=== PATIENT | male | born 1985 ===

== ENCOUNTER 2018-04-28 08:19 | Inpatient (IN) | payer OTHER ==
[2018-04-28] MEDS ORDERED: MIRALAX17 GM PO (17:01)
[2018-04-28] MEDS ORDERED: PERCOCET 5-3251 EACH PO (17:01)
[2018-04-30] MEDS ORDERED: AMOX1TAB5 PO (09:05)
== END 2018-04-30 10:25 | disposition home or self-care (01) | DRG 417 ==
LOC: CIR.AMB 08:19 → MEDI 18:27
PROVIDERS: Surgery
PROC: 3E1M38X Irrigation of Peritoneal Cavity using Irrigating Substance, Percutaneous Approach, Diagnostic (ICD-10-PCS; 2018-04-28)
PROC: 0FT44ZZ Resection of Gallbladder, Percutaneous Endoscopic Approach (ICD-10-PCS; principal; 2018-04-28 13:00)
DX: K80.12 Calculus of gallbladder with acute and chronic cholecystitis without obstruction (principal); K65.3 Choleperitonitis; R50.82 Postprocedural fever